=== PATIENT | female | born 1940 | race Caucasian/White ===

== ENCOUNTER 2017-08-10 12:18 | Emergency (ER) | payer OTHER ==
[~2017-08-10] VITALS: Ht 157.5 cm; Wt 60.8 kg
[~2017-08-10 12:18] MED LIST: AMOX1TAB12 PO; CEFADROXIL500 MG PO; DERMOTIC20 ML OTIC; ENALAPRIL MALEAT5 MG PO; EPANED1 MG/1 ML; INTESTINEX1 CAP PO; SEPTRA DS TABLE1 TAB PO; URETRON DS1 TAB PO; ZANTAC150 MG PO
== END 2017-08-10 16:05 | disposition home or self-care (01) ==
LOC: ER 12:18
DX: K29.00 Acute gastritis without bleeding (principal)